=== PATIENT | female | born 1990 | race Caucasian/White ===

== ENCOUNTER → 2020-05-09 | Outpatient (CLI) | payer OTHER ==
[~2020-05-09] MED LIST: BUTALB-APAP-CA1 EACH PO; VALIUM5 MG PO; VENLAFAXINE HCL50 MG PO; ZOFRAN ODT4 MG PO
== END ==
LOC: M.ULTRA 10:58
PROVIDERS: ATTEND Specialist
DX: R22.1 Localized swelling, mass and lump, neck (principal)

== ENCOUNTER → 2020-05-13 | Outpatient (CLI) | payer OTHER ==
--- NOTE | 2020-05-13 15:37 | 2DMMODE ---
[place] [address] 2 D/M-MODE ECHOCARDIOGRAM Name: GENEVIEVE KELLEY Room: [facility]#: [id number] Admission: 05/13/20 Attend Phys: Jules Robles Discharge: Date of : 88 Date of Service: 05/13/20 1537 Report #: [id number] THIS REPORT FOR: cc: Jorge Luis Colon. Jorge Luis Newton. Akin Peter MD [facility] ~ APPROVED REPORT Study performed: 05/13/2020 09:53:52 EXAM: Comprehensive 2D, Doppler, and color-flow Echocardiogram Patient Location: Out-Patient BSA: 1.86 HR: 77 bpm BP: 140/90 mmHg Other Information Study Quality: Good Indications Dyspnea 2D Dimensions IVSd: 10.04 (7-11mm) LVOT Diam: 20.73 (18-24mm) LVDd: 45.44 mm PWd: 9.05 (7-11mm) Ascending Ao: 27.42 (22-36mm) LVDs: 33.37 (25-40mm) Aortic Root: 27.53 mm Volumes Left Atrial Volume (Systole) LA ESV Index: 21.40 mL/m2 Aortic Valve AoV Peak Zuhair.: 1.27 m/s AO Peak Gr.: 6.46 mmHg LVOT Max P.83 mmHg AO Mean Gr.: 3.65 mmHg LVOT Mean P.33 mmHg LVOT Max V: 0.84 m/s AO V2 VTI: 22.22 cm LVOT Mean V: 0.53 m/s PANFILO (VTI): 2.51 cm2 LVOT V1 VTI: 16.53 cm Mitral Valve E/A Ratio: 1.12 [place] [address] 2 D/M-MODE ECHOCARDIOGRAM Name: GENEVIEVE KELLEY Room: [facility]#: [id number] Admission: 05/13/20 Attend Phys: Jules Robles Discharge: Date of : 88 Date of Service: 05/13/20 1537 Report #: [id number] MV Decel. Time: 198.91 ms MV E Max Zuhair.: 0.59 m/s MV PHT: 57.68 ms MVA (PHT): 3.81 cm2 TDI E/Lateral E': 4.54 E/Medial E': 5.90 Medial E' Zuhair.: 0.10 m/s Lateral E' Zuhair.: 0.13 m/s Pulmonary Valve PV Peak Zuhair.: 0.93 m/s PV Peak Gr.: 3.45 mmHg Left Ventricle The left ventricle is normal size. There is normal LV segmental wall motion. There is normal left ventricular wall thickness. Left ventricular systolic function is normal. The left ventricular ejection fraction is within the normal range. LVEF is 55-60%. The left ventricular diastolic function is normal. Right Ventricle The right ventricle is normal size. The right ventricular systolic function is normal. Atria The left atrium size is normal. The right atrium size is normal. Aortic Valve The aortic valve is normal in structure. No aortic regurgitation is present. There is no aortic valvular stenosis. Mitral Valve The mitral valve is normal in structure. There is no mitral valve regurgitation noted. No evidence of mitral valve stenosis. Tricuspid Valve The tricuspid valve is normal in structure. There is trace tricuspid valve regurgitation noted. Pulmonic Valve The pulmonary valve is normal in structure. There is no pulmonic valvular regurgitation. Great Vessels The aortic root is normal in size. IVC [place] [address] 2 D/M-MODE ECHOCARDIOGRAM Name: GENEVIEVE KELLEY Room: [facility]#: [id number] Admission: 05/13/20 Attend Phys: Jules Robles Discharge: Date of : 88 Date of Service: 05/13/20 1537 Report #: [id number] collapses >50% with inspiration. Pericardium There is no pericardial effusion. <Conclusion> Left ventricular systolic function is normal. The left ventricular ejection fraction is within the normal range. <ELECTRONICALLY SIGNED> By: Akin Schmidt MD, FACC 05/13/20 1537 1537 1537 Akin Schmidt MD, FACC /INF
== END ==
LOC: M.CRD 10:00
PROVIDERS: ATTEND Specialist
DX: R53.83 Other fatigue (principal); R06.02 Shortness of breath

== ENCOUNTER 2020-09-17 10:03 | Emergency (ER) | payer OTHER ==
[~2020-09-17] VITALS: Ht 152.4 cm; Wt 72.6 kg
[2020-09-17] MEDS ORDERED: MINIVELLE1 EAC1 PO (10:25)
[2020-09-17 11:58] LABS: ABSOLUTE LYMPHOCYTES 0.8 thou/uL (0.8-5.3); ABSOLUTE MONOCYTES 0.4 thou/uL (0.0-1.2); ABSOLUTE NEUTROPHILS 5.3 thou/uL (1.6-8.1); BASOPHILS 0.3 %; EOSINOPHILS 0.1 %; HEMATOCRIT 37.9 % (37.0-47.0); HEMOGLOBIN 13.1 gm/dL (12.0-15.0); LYMPHOCYTES 11.9 %; MCH 30.5 pg (26.0-34.0); MCHC 34.5 g/dL (28.0-37.0); MCV 88.3 fL (80.0-100.0); MONOCYTES 6.3 %; MPV 8.7 fl. (7.2-11.1); NUCLEATED RBCS 0 /100WBC; PLATELET COUNT* 185 thou/uL (150-400); POLYS 81.4 %; RBC 4.29 mil/uL (4.20-5.00); RDW-CV 12.6 % (10.5-14.5); WBC 6.5 thou/uL (4.0-11.0)
[2020-09-17 12:07] LABS: CALCIUM 8.8 mg/dL (8.5-10.1); CREATININE 0.6 mg/dL (0.6-1.3); POTASSIUM 3.6 mmol/L (3.5-5.1)
[2020-09-17 12:21] LABS: ALBUMIN 3.5 g/dL (3.4-5.0); TOTAL BILIRUBIN 0.4 mg/dL (<0.1-1.0); TOTAL PROTEIN 7.9 g/dL (6.4-8.2)
[2020-09-17] MEDS ORDERED: VENTOLIN HFA 1818 GM INH (12:41)
[2020-09-17] MEDS ORDERED: PHENERGAN 25 MG25 M1 PO (12:41)
[2020-09-17] MEDS ORDERED: TESSALON PERLE100 MG PO (12:41)
[2020-09-17 12:53] VITALS: BP 122/80
--- NOTE | 2020-09-17 15:03 | EKG ---
[place] [address] ELECTROCARDIOGRAM REPORT Name: GENEVIEVE KELLEY Room: [facility]#: [id number] Admission: 09/17/20 Attend Phys: Discharge: 09/17/20 Date of : 88 Date of Service: 09/17/20 [facility] Report #: [id number] THIS REPORT FOR: //name// [facility] ED Test Date: 2020-09-17 Test Time: 10:24:33 Pat Name: GENEVIEVE KELLEY Department: Room: Gender: F [employer]: [facility] : 1990 Requested By: Dayanara Duff Order Number: [id number] MD: Nelson Shepherd Measurements Intervals [place] Rate: 80 P: 32 AR: 129 QRS: 56 QRSD: 71 T: -74 QT: 471 QTc: 544 Interpretive Statements Sinus rhythm Borderline repolarization abnormality Prolonged QT interval No previous ECG available for comparison Electronically Signed On 09-17-2020 15:03:53 CDT by Nelson Shepherd [email or web address] <ELECTRONICALLY SIGNED> By: Nelson Shepherd MD, [facility] 09/17/20 1503 1024 1024 Nelson Shepherd MD, [facility] /EPI
== END 2020-09-17 12:55 | disposition home or self-care (01) ==
LOC: M.ERS 10:03
PROVIDERS: Nurse Practitioner Family
DX: B34.9 Viral infection, unspecified (principal); Z20.822 Contact with and (suspected) exposure to COVID-19; G43.909 Migraine, unspecified, not intractable, without status migrainosus; Z88.0 Allergy status to penicillin; Z90.710 Acquired absence of both cervix and uterus; Z90.89 Acquired absence of other organs